=== PATIENT | female | born 1945 | race Caucasian/White ===

== ENCOUNTER 2016-09-08 22:46 | Observation (INO) | payer OTHER ==
[~2016-09-08] VITALS: Ht 160 cm; Wt 65.9 kg
[~2016-09-08 22:46] MED LIST: ALLEGRA ALLERG180 MG PO; ALLEGRA180 MG PO; AMBIEN10 MG PO; ASPIR-LOW81 MG PO; BUDEPRION XL150 MG PO; CALCIUM 500 +1 EACH PO; CITALOPRAM HBR40 M1 PO; FISH OIL 1,0001 EAC7 PO; FISH OIL500 MG PO; FLONASE16 G1 BOTH NARES; LEVOTHYROXINE100 MCG PO; NORVASC5 MG PO; OMEPRAZOLE20 MG PO; PRAVACHOL40 M1 PO; PRAVASTATIN SOD40 MG PO; PRESERVISION T1 EACH PO; TYLENOL EXTRA500 MG PO
[2016-09-08 23:28] LABS: MCH 29.3 PG (29.0-34.0); MCHC 33.3 G/DL (30.0-36.0); MEAN PLAT.VOLUME 9.1 uM^3 (9.5-12.4); PLATELET COUNT 180 K/uL (156-360); RBC DIS.WIDTH-CV 12.3 % (11.8-14.6); RBC DIS.WIDTH-SD 39.7 % (39-53); RED BLOOD COUNT 5.23 M/uL (3.80-5.20); WHITE BLOOD COUNT 6.6 K/uL (4.1-10.2)
[2016-09-08 23:42] LABS: CHLORIDE 109 mEq/L (99-109); POTASSIUM 3.5 mEq/L (3.7-5.4); SODIUM 142 mEq/L (136-147)
[2016-09-08 23:44] LABS: GLUCOSE 148 mg/dL (70-99)
[2016-09-08 23:45] LABS: ANION GAP 12 MEQ/L (2-14)
[2016-09-08 23:48] LABS: GFR ESTIMATE (CALCULATED) > 59 mL/min/; UREA NITROGEN (BUN) 22 mg/dL (9-23)
[2016-09-08 23:53] LABS: TROP-I INTERPRETATION NEGATIVE; TROPONIN-I < 0.01 ng/mL (0.0-0.30)
[2016-09-09 00:27] LABS: D-DIMER ELISA 0.31 mg/L FEU (< 0.57)
[2016-09-09] MEDS ORDERED: FISH OIL 1,001000 M1 PO (02:01)
[2016-09-09] MEDS ORDERED: OMEPRAZOLE40 M1 PO (02:02)
[2016-09-09 02:34] LABS: MAGNESIUM 2.4 mg/dL (1.3-2.7)
[2016-09-09 03:29] VITALS: BP 131/83
[2016-09-09 06:07] LABS: TROP-I INTERPRETATION NEGATIVE; TROPONIN-I < 0.01 ng/mL (0.0-0.30)
[2016-09-09 07:04] LABS: HDL CHOLESTEROL 66 MG/DL (Desirable>=50); LDL CHOLESTEROL 136 mg/dL (Desirable<100); NON-HDL CHOLESTEROL 153 mg/dL (Desirable<160); TOTAL CHOLESTEROL 219 mg/dL (Desirable<200); TRIGLYCERIDES 83 MG/DL (Normal: <150)
[2016-09-09 07:16] LABS: Estimated Average Glucose 117 mg/dL (70-123); HEMOGLOBIN A1c (GLYCOHEMOGLOB) 5.7 % HGB (Below 5.7)
[2016-09-09 07:41] VITALS: BP 150/67
[2016-09-09 07:49] LABS: POTASSIUM 3.8 MEQ/L (3.7-5.4)
[2016-09-09 09:08] VITALS: BP 147/84
[2016-09-09 11:55] VITALS: BP 131/66
[2016-09-09 12:55] LABS: TROP-I INTERPRETATION NEGATIVE; TROPONIN-I < 0.01 ng/mL (0.0-0.30)
[2016-09-09] MEDS ORDERED: METOPROLOL SUCC25 MG PO (15:45)
[2016-09-09] MEDS ORDERED: ELIQUIS5 MG PO (15:45)
[2016-09-09 16:14] VITALS: BP 121/61
== END 2016-09-09 16:49 | disposition home or self-care (01) ==
LOC: EME 22:46 → EDOF 09-09 01:32 → 5WEST 09-09 03:17
PROVIDERS: Physician Assistant Medical
DX: I48.0 Paroxysmal atrial fibrillation (principal); R07.2 Precordial pain; I10 Essential (primary) hypertension; E78.5 Hyperlipidemia, unspecified; K21.9 Gastro-esophageal reflux disease without esophagitis; E03.9 Hypothyroidism, unspecified; M19.90 Unspecified osteoarthritis, unspecified site; F32.9 Major depressive disorder, single episode, unspecified; Z86.73 Personal history of transient ischemic attack (TIA), and cerebral infarction without residual deficits; H35.3190 Nonexudative age-related macular degeneration, unspecified eye, stage unspecified; H26.9 Unspecified cataract; F41.9 Anxiety disorder, unspecified; Z96.641 Presence of right artificial hip joint
CPT/HCPCS: 71020; 71275; 80048; 80061; 83036; 83735; 83880; 84132; 84132 91; 84443; 84484; 85027; 85379; 93005; 93306; 99281; 99284; G0378; J1650